=== PATIENT | male | born 2000 | race Caucasian/White ===

== ENCOUNTER 2022-04-23 16:37 | Inpatient (IN) | payer BC ==
[2022-04-23] MEDS ORDERED: Boostrix 0.5 ML (Tdap) VIAL (>/=7 yrs of age) ONE (17:01)
[2022-04-23] MEDS ORDERED: Prochlorperazine 10 MG/2 ML VIAL ONE (17:01)
[2022-04-23] MEDS ORDERED: Fentanyl 100 MCG/2 ML VIAL ONE (18:38)
[2022-04-23] MEDS ORDERED: Lidocaine 1% w/Epinephrine 1:100K 20 ML VIAL ONE (18:38)
[2022-04-23] MEDS ORDERED: hydrALAZINE 20 MG/ML VIAL SLOW IVP PRN (19:29)
[2022-04-23] MEDS ORDERED: Morphine 4 MG/ML VIAL SLOW IVP PRN (19:29)
[2022-04-23] MEDS ORDERED: Dextrose 50% Abboject 50 ML SYRINGE SLOW IVP PRN (19:29)
[2022-04-23] MEDS ORDERED: Dextrose 5% in Water 1,000 ML IV PRN (19:29)
[2022-04-23 19:59] LABS: #Lymphocytes 0.5 thou/uL (1.20-3.40); #Monocytes 0.4 thou/uL (0.11-0.59); #Neutrophils 9.1 thou/uL (1.40-6.50); %Eosinophils 0.1 % (0.0-10.0); %Lymphocytes 5.3 % (21.0-51.0); %Monocytes 4.2 % (0.0-10.0); %Neutrophils 90.4 % (42.0-75.0); Mean Corpuscular HGB CONC 34.9 g/dL (32.0-36.0); Mean Corpuscular Hemoglobin 32.9 pg (27.0-31.0); Mean Corpuscular Volume 94.3 fl (78.0-98.0); Mean Platelet Volume 7.8 fL (7.4-10.4); Platelet Count 187 10x3/uL (130-400); Red Blood Cell (RBC) Count 3.95 mill/uL (4.70-6.10); White Blood Cell (WBC) Count 10.1 10x3/uL (4.8-10.8)
[2022-04-23 20:09] LABS: INR-International Normal Ratio 1.1; Prothrombin Time 14.8 sec (12.0-14.7)
[2022-04-23 20:10] LABS: PTT 24.6 sec (22.9-36.1)
[2022-04-23 20:15] LABS: Phosphorus 2.5 mg/dL (2.3-4.7)
[2022-04-23 20:19] LABS: ALT (SGPT) 39 U/L (8-55); AST (SGOT) 55 U/L (5-34); Albumin 4.4 g/dL (3.5-5.0); Alkaline Phosphatase 59 U/L (40-110); Anion Gap 11 mmol/L (10-20); BUN (Urea Nitrogen) 10 mg/dL (8.9-20.6); Bilirubin, Total 0.9 mg/dL (0.2-1.2); CK (CPK) 1636 U/L (30-200); Calc. Creatinine Clearance 0 mL/min (70-130); Calcium 8.6 mg/dL (7.8-10.44); Carbon Dioxide 25 mmol/L (22-29); Chloride 106 mmol/L (98-107); Estimated GFR 128; Globulin 2.4 g/dL (2.4-3.5); Glucose 127 mg/dL (70-105); Magnesium 1.6 mg/dL (1.6-2.6); Protein, Total 6.8 g/dL (6.0-8.3); Sodium 138 mmol/L (136-145)
[2022-04-23] MEDS ORDERED: Magnesium 2 GM/50 ML(in water) 2 GM in Premix Bag 1 BAG IVPB SCH (20:45)
[2022-04-23] MEDS ORDERED: PHOS-NAK 1 PKT PACK PO SCH (20:45)
[2022-04-23] MEDS ORDERED: Scopolamine 1.5 mg/72 hour Patch TD SCH (21:00)
[2022-04-23 21:21] VITALS: BMI 26.6
[2022-04-23] MEDS: Famotidine 20 MG TAB PO SCH (21:28)
[2022-04-23] MEDS: Senokot S 8.6-50 MG TAB PO SCH (21:28)
[2022-04-23] MEDS: Sodium Chloride 0.9% 1,000 ML IV SCH (21:33)
[2022-04-23] MEDS: Acetaminophen/Codeine 30-300mg Tablet PO PRN (21:43)
[2022-04-23] MEDS: Ondansetron PF 4 MG/2 ML Vial IVP PRN (22:06)
[2022-04-24] MEDS: Acetaminophen 500 MG TAB PO SCH ×3 (00:24→12:44)
[2022-04-24] MEDS: Famotidine 20 MG TAB PO SCH ×3 (02:50→20:52)
[2022-04-24] MEDS: Senokot S 8.6-50 MG TAB PO SCH ×3 (02:50→20:52)
[2022-04-24] MEDS: Ondansetron PF 4 MG/2 ML Vial IVP PRN (04:58)
[2022-04-24] MEDS: Acetaminophen/Codeine 30-300mg Tablet PO PRN (05:30)
[2022-04-24 05:59] LABS: SARS-CoV-2 NAA Rapid Test Not Detected (NotDetected)
[2022-04-24 07:11] LABS: #Lymphocytes 0.7 thou/uL (1.20-3.40); #Monocytes 0.7 thou/uL (0.11-0.59); #Neutrophils 11.2 thou/uL (1.40-6.50); %Eosinophils 0.1 % (0.0-10.0); %Lymphocytes 5.3 % (21.0-51.0); %Monocytes 5.8 % (0.0-10.0); %Neutrophils 88.7 % (42.0-75.0); Hemoglobin 13.3 g/dL (14.0-18.0); Mean Corpuscular HGB CONC 34.9 g/dL (32.0-36.0); Mean Corpuscular Hemoglobin 32.7 pg (27.0-31.0); Mean Corpuscular Volume 93.9 fl (78.0-98.0); Mean Platelet Volume 7.8 fL (7.4-10.4); Platelet Count 213 10x3/uL (130-400); RBC Distribution Width 11.1 % (11.5-14.5); Red Blood Cell (RBC) Count 4.07 mill/uL (4.70-6.10); White Blood Cell (WBC) Count 12.6 10x3/uL (4.8-10.8)
[2022-04-24 07:32] LABS: Anion Gap 16 mmol/L (10-20); BUN (Urea Nitrogen) 9 mg/dL (8.9-20.6); CK (CPK) 1060 U/L (30-200); Calc. Creatinine Clearance 175 mL/min (70-130); Calcium 9.1 mg/dL (7.8-10.44); Carbon Dioxide 22 mmol/L (22-29); Chloride 103 mmol/L (98-107); Estimated GFR 131; Glucose 117 mg/dL (70-105); Phosphorus 3.8 mg/dL (2.3-4.7); Potassium 4.6 mmol/L (3.5-5.1); Sodium 136 mmol/L (136-145)
[2022-04-24] MEDS: Polyethylene Glycol 3350 17 GM Packet PO SCH (09:58)
[2022-04-24] MEDS: Sodium Chloride 0.9% 1,000 ML IV SCH ×2 (12:08→12:46)
[2022-04-24] MEDS: Acetaminophen 325 MG TAB PO SCH (18:04)
[2022-04-24] MEDS ORDERED: Ondansetron ODT 4 MG TAB PO PRN (19:30)
[2022-04-25] MEDS: Acetaminophen 325 MG TAB PO SCH ×5 (00:08→21:39)
[2022-04-25] MEDS ORDERED: Promethazine HCl 25 MG/ML VIAL IM PRN (11:38)
[2022-04-25] MEDS ORDERED: Dexamethasone 4 mg/ml Vial SLOW IVP SCH (12:00)
[2022-04-25 12:12] LABS: Anion Gap 16 mmol/L (10-20); BUN (Urea Nitrogen) 11 mg/dL (8.9-20.6); Calc. Creatinine Clearance 171 mL/min (70-130); Calcium 9.4 mg/dL (7.8-10.44); Carbon Dioxide 26 mmol/L (22-29); Chloride 99 mmol/L (98-107); Estimated GFR 130; Glucose 106 mg/dL (70-105); Magnesium 1.8 mg/dL (1.6-2.6); Phosphorus 3.3 mg/dL (2.3-4.7); Potassium 4.3 mmol/L (3.5-5.1); Sodium 137 mmol/L (136-145)
[2022-04-25] MEDS: Dexamethasone 4 mg/ml Vial SLOW IVP SCH ×2 (12:13→18:03)
[2022-04-25] MEDS: Sodium Chloride 0.9% 1,000 ML IV SCH (12:14)
[2022-04-25] MEDS: Ondansetron PF 4 MG/2 ML Vial IVP PRN ×2 (12:19→18:03)
[2022-04-25] MEDS: Senokot S 8.6-50 MG TAB PO SCH ×2 (14:02→21:42)
[2022-04-25] MEDS: Polyethylene Glycol 3350 17 GM Packet PO SCH (14:02)
[2022-04-25] MEDS: Famotidine 20 MG TAB PO SCH ×2 (14:02→21:43)
[2022-04-25] MEDS ORDERED: Magnesium 2 GM/50 ML(in water) 2 GM in Premix Bag 1 BAG IVPB SCH (19:00)
[2022-04-25] MEDS ORDERED: Promethazine HCl 12.5 MG in Sodium Chloride 0.9% 50 ML IVPB PRN (22:56)
[2022-04-26] MEDS: Sodium Chloride 0.9% 1,000 ML IV SCH ×3 (00:03→18:29)
[2022-04-26] MEDS: Dexamethasone 4 mg/ml Vial SLOW IVP SCH ×2 (00:08→06:03)
[2022-04-26] MEDS: Ondansetron PF 4 MG/2 ML Vial IVP PRN ×2 (06:02→10:47)
[2022-04-26] MEDS: Acetaminophen 325 MG TAB PO SCH ×3 (06:03→18:29)
[2022-04-26] MEDS ORDERED: Ondansetron ODT 4 MG TAB PO PRN (12:09)
[2022-04-26 16:40] VITALS: BP 120/68; TEMP 98.1
[2022-04-26] MEDS: Senokot S 8.6-50 MG TAB PO SCH (18:28)
[2022-04-26] MEDS: Polyethylene Glycol 3350 17 GM Packet PO SCH (18:28)
[2022-04-26] MEDS: Famotidine 20 MG TAB PO SCH (18:28)
[2022-04-27] MEDS ORDERED: FLU VACC QS2022-23(6MOS UP)/PF 60 MCG/0.5 ML SYRINGE IM ONE (03:00)
== END 2022-04-26 19:28 | disposition home or self-care (01) | DRG 84 ==
LOC: ERS 16:37 → SJJU 19:29 → OBSVTOIN 04-24 16:31
PROVIDERS: ADMIT Surgery; ATTEND Surgery
DX: S06.5X9A Traumatic subdural hemorrhage with loss of consciousness of unspecified duration, initial encounter (principal); S01.01XA Laceration without foreign body of scalp, initial encounter; Z20.822 Contact with and (suspected) exposure to COVID-19; F12.10 Cannabis abuse, uncomplicated; F17.210 Nicotine dependence, cigarettes, uncomplicated; F90.9 Attention-deficit hyperactivity disorder, unspecified type; V00.131A Fall from skateboard, initial encounter; Z88.1 Allergy status to other antibiotic agents; F07.81 Postconcussional syndrome
CPT/HCPCS: 36415; 70450; 72125; 80048; 80053; 82550; 83735; 84100; 85025; 85610; 85730; 90715; 96375; G0378; G0390; J0780; J1100; J2405; J2550; J3010; J3475; J7050; Q0162; U0002

== ENCOUNTER 2022-05-10 13:45 | Outpatient (CLI) | payer BC | END 2022-05-10 13:46 | disposition home or self-care (01) | LOC: BICCT 13:45 | PROVIDERS: ATTEND Physician Assistant | DX: S06.5X0D Traumatic subdural hemorrhage without loss of consciousness, subsequent encounter (principal) | CPT/HCPCS: 70450 ==

== ENCOUNTER 2022-06-10 14:08 | Outpatient (CLI) | payer BC | END 2022-06-10 14:09 | disposition home or self-care (01) | LOC: BICCT 14:08 | PROVIDERS: ATTEND Surgery | DX: S06.5X0D Traumatic subdural hemorrhage without loss of consciousness, subsequent encounter (principal) | CPT/HCPCS: 70450 ==